=== PATIENT | female | born 1995 | race African-American/Black ===

== ENCOUNTER 2019-06-26 04:23 | Emergency (ER) | payer SELFPAY ==
[~2019-06-26] VITALS: Ht 160 cm; Wt 83.9 kg
[2019-06-26] MEDS ORDERED: [UNRECOGNIZED DRUG - REMARK] (04:30)
--- NOTE | 2019-06-26 04:50 | NUR ---
PATIENT WAS MSE BY DR FOY IN ROOM 05A.
[2019-06-26] MEDS ORDERED: IPRATROPIUM BROMIDE 0.5 MG/2.5 ML NEBU NEB ONE (05:00)
[2019-06-26] MEDS ORDERED: IV NORMAL SALINE 1000 ML BAG IV ONE (05:00)
[2019-06-26] MEDS ORDERED: methylPREDNISolone SOD SUCC 125 MG/2 ML VIAL IV ONE (05:00)
[2019-06-26] MEDS ORDERED: MAGNESIUM SULFATE 2 GM in IV DEXTROSE 5% 100 ML IV ONE (05:00)
[2019-06-26] MEDS ORDERED: ALBUTEROL SULFATE 2.5 MG/3 ML NEBU NEB ONE (05:00)
[2019-06-26] MEDS ORDERED: ALBUTEROL SULFATE 2.5 MG/3 ML NEBU ONE (05:03)
[2019-06-26] MEDS ORDERED: IPRATROPIUM BROMIDE 0.5 MG/2.5 ML NEBU ONE (05:04)
[2019-06-26] MEDS ORDERED: methylPREDNISolone SOD SUCC 125 MG/2 ML VIAL ONE (05:06)
[2019-06-26] MEDS ORDERED: MAGNESIUM SULFATE/D5W 0 ML ONE (05:06)
[2019-06-26] MEDS ORDERED: MAGNESIUM SULFATE 1 GM/2 ML VIAL ONE (05:07)
[2019-06-26 06:26] VITALS: BP 118/74
--- NOTE | 2019-06-26 06:26 | NUR ---
Patient discharged to home in stable conditon. Written and verbal after care instructions given. Patient verbalizes understanding of instructions.
== END 2019-06-26 06:29 | disposition home or self-care (01) ==
LOC: ER 04:35
DX: J45.909 Unspecified asthma, uncomplicated (principal); Z79.2 Long term (current) use of antibiotics
CPT/HCPCS: 94644; 96365; 96375; 99285; J2930; J3475; J7060; A4663; J3590